=== PATIENT | female | born 1995 | race Caucasian/White ===

== ENCOUNTER 2021-06-06 17:57 | Emergency (ER) | payer MEDICAID ==
[~2021-06-06] VITALS: Ht 170.2 cm; Wt 80.0 kg
[2021-06-06] MEDS ORDERED: SODIUM CHLORIDE 0.9% 1,000 ML IV ONE (18:15)
[2021-06-06 19:37] LABS: CHLORIDE 108 mEq/L (98-107)
[2021-06-06 20:49] LABS: BASOPHILS % 0.2 % (0.0-2.0); EOSINOPHILS % 0.2 % (0.0-5.0); HEMATOCRIT. 35.6 % (36.0-48.0); LYMPHOCYTES % 20.5 % (20.0-50.0); MEAN CORPUSCULAR HEMOGLOBIN 32.9 pg (28.0-32.0); MEAN PLATELET VOLUME 7.9 fl (7.4-10.4); MONOCYTES % 5.4 % (2.0-8.0); NEUTROPHILS % 73.7 % (40.0-76.0); PLATELET 230 x1000/uL (130-400); RED BLOOD CELL COUNT 3.96 mill/uL (4.2-5.4); RED CELL DISTRIBUTION WIDTH 13.1 % (11.6-14.6)
[2021-06-06 20:50] LABS: CLARITY URINE CLEAR (CLEAR); COLOR URINE YELLOW (YELLOW); KETONES URINE 4+ (NEGATIVE); LEUKOCYTE ESTERASE URINE 1+ (NEGATIVE); NITRITE URINE NEGATIVE (NEGATIVE); OCCULT BLOOD URINE 1+ (NEGATIVE); PROTEIN URINE TRACE (NEGATIVE); SPECIFIC GRAVITY URINE 1.015 (1.005-1.030)
[2021-06-06] MEDS ORDERED: CEPHALEXIN 250MG CAPSULE PO ONE (21:15)
[2021-06-06] MEDS ORDERED: CEPH250C2 MT (21:16)
[2021-06-06 21:35] VITALS: BP 124/52
== END 2021-06-06 21:40 | disposition home or self-care (01) ==
LOC: ER 17:57
DX: N39.0 Urinary tract infection, site not specified (principal); R55 Syncope and collapse
CPT/HCPCS: 36415; 80053; 81003; 81025; 82962; 83880; 84484; 85025; 93005; 96360; 96361; 99284; J7030